=== PATIENT | male | born 1970 | race Caucasian/White ===

== ENCOUNTER 2017-11-26 15:35 | Emergency (ER) | payer MEDICAID ==
[~2017-11-26] VITALS: Ht 185.4 cm; Wt 98.2 kg
[~2017-11-26 15:35] MED LIST: CYCL-1 PO; CYCL-394 PO; HYDR-3964 PO; HYDR-569 PO; METH-360 PO
[2017-11-26 15:41] VITALS: BP 114/91
[2017-11-26] MEDS ORDERED: HYDROcodone/acetaminophen 10/325mg tab PO STA (15:47)
[2017-11-26] MEDS ORDERED: HYDROcodone/acetaminophen 10/325mg tab PO ONE (16:05)
[2017-11-26] MEDS ORDERED: HYDR-565 PO (16:35)
[2017-11-26] MEDS ORDERED: IBUP-1986 PO (16:35)
== END 2017-11-26 16:56 | disposition home or self-care (01) ==
LOC: ER 15:35
DX: S93.402A Sprain of unspecified ligament of left ankle, initial encounter (principal); K21.9 Gastro-esophageal reflux disease without esophagitis; G89.29 Other chronic pain; X58.XXXA Exposure to other specified factors, initial encounter; Y93.01 Activity, walking, marching and hiking; Y92.89 Other specified places as the place of occurrence of the external cause; Y99.8 Other external cause status
CPT/HCPCS: 29515; 73610; 99284

== ENCOUNTER 2018-02-05 11:12 | Emergency (ER) | payer MEDICAID ==
[~2018-02-05] VITALS: Ht 180.3 cm; Wt 78.0 kg
[~2018-02-05 11:12] MED LIST changes: +IBUP-1986 PO
[2018-02-05] MEDS ORDERED: CHLO473M3 PO (11:36)
[2018-02-05] MEDS ORDERED: AMOX500C2 PO (11:36)
[2018-02-05 12:18] VITALS: BP 116/68
== END 2018-02-05 12:25 | disposition home or self-care (01) ==
LOC: ER 11:13
DX: K04.7 Periapical abscess without sinus (principal); F17.210 Nicotine dependence, cigarettes, uncomplicated; G89.29 Other chronic pain; K21.9 Gastro-esophageal reflux disease without esophagitis; Z98.890 Other specified postprocedural states; Z88.5 Allergy status to narcotic agent; Z79.899 Other long term (current) drug therapy
CPT/HCPCS: 99283